=== PATIENT | female | born 1990 | race Caucasian/White ===

== ENCOUNTER 2018-09-24 10:43 | Outpatient (CLI) | payer MEDICAID, OTHER, SELFPAY ==
[~2018-09-24] VITALS: Ht 157.5 cm; Wt 78.1 kg
[2018-09-24] MEDS ORDERED: PREN1TAB60 PO (10:58)
[2018-09-24 11:04] VITALS: BP 112/58
[2018-09-24 11:26] LABS: MICROSCOPIC NOT IND
[2018-09-24 11:32] LABS: AMPHETAMINE SCREEN, URINE Negative (Negative); BARBITURATE SCREEN, URINE Negative (Negative); BENZODIAZEPINE SCREEN, URINE Negative (Negative); CANNABINOID SCREEN, URINE Positive (Negative); COCAINE SCREEN, URINE Negative (Negative); METHADONE SCREEN, URINE Negative (Negative); OPIATE SCREEN, URINE Negative (Negative)
== END 2018-09-24 23:59 | disposition home or self-care (01) ==
LOC: LDOP 10:43
PROVIDERS: ATTEND Obstetrics & Gynecology
DX: O26.899 Other specified pregnancy related conditions, unspecified trimester (principal); Z3A.00 Weeks of gestation of pregnancy not specified
CPT/HCPCS: 80307; 81003; 87086; 99201; G0463